=== PATIENT | female | born 2000 | race Caucasian/White ===

== ENCOUNTER → 2025-05-23 11:33 | Outpatient (CLI) | payer OTHER, SELFPAY ==
--- NOTE | 2025-05-23 11:35 | DI.RAD.S_ITS ---
PROCEDURE: XR LUMBAR SPINE MIN 4V INDICATIONS: chronic low back pain TECHNIQUE: 5 views of the lumbar spine acquired, including flexion and extension views. COMPARISON: None. FINDINGS: Lumbar spine curvature and alignment: Slight leftward curve. Normal physiologic motion in flexion extension Bones: There are no osseous abnormalities. Disc spaces: Normal in height without significant degeneration. Intervertebral foramen: Grossly normal in width. Soft tissues: No soft tissue swelling, calcification or mass. IMPRESSION: Normal lumbar spine Dictated by: Jerrod Hancock M.D. on 05/24/2025 at 12:53 Approved by: Jerrod Hancock M.D. on 05/24/2025 at 12:55
== END ==
PROVIDERS: Referring Provider Physical Medicine & Rehabilitation; Visit Provider Physical Medicine & Rehabilitation
DX: M54.50 Low back pain, unspecified (principal)
CPT/HCPCS: 72110